=== PATIENT | male | born 1950 | race African-American/Black ===

== ENCOUNTER 2021-07-12 12:05 | Inpatient (IN) ==
[2021-07-12] MEDS ORDERED: SODIUM CHLORIDE 0.9% 1,000 ML IV STA (13:12)
[2021-07-12 13:15] LABS: Basophils % 0.2 % (0.0-0.8); Eosinophils % 0.2 % (0.00-10.9); Hematocrit 36.3 VOL% (42.0-52.0); Hemoglobin 12.1 GM/DL (14.0-18.0); Immature Granulocytes % 2.7 %; Immature Granulocytes Absolute 0.49 #; Lymphocytes # 1.2 10*3/uL (1.4-4.0); Lymphocytes % 6.5 % (21.2-54.2); Mean Corpuscular HGB Conc 33.3 GM/DL (32-36); Mean Corpuscular Volume 87.5 FL (87-102); Mean Platelet Volume 10.6 FL (9.6-12.0); Monocytes % 11.1 % (1.7-12.7); Neutrophils % 79.3 % (38.7-73.9); Platelet Count 459 T/CUMM (130-400); Red Blood Count 4.15 MC/CUMM (3.8-5.5); Red Cell Distribution Width 14.6 % (9.3-17.3); White Blood Count 18.1 T/CUMM (4-12)
[2021-07-12 13:23] LABS: Bilirubin,Urine Small mg/dL (Negative); Glucose,Urine (UA) Negative (Negative); Ketones,Urine Negative (Negative); Nitrite,Urine Negative (Negative); Protein,Urine Trace mg/dL (Negative); Urine Appearance Clear (Clear); Urine Color Orange (Yellow); Urine Specific Gravity 1.025 (1.001-1.035)
[2021-07-12 13:24] LABS: Blood, Urine Trace mg/dL (Negative); Urine Urobilinogen > 8.0 eU/dL (<2.0)
[2021-07-12 13:28] LABS: Hyaline Casts,Urine 173 /LPF (0-3); Mucus,Urine Moderate /LPF (Occasional); RBC,Urine 2 /HPF (0-4); Squamous Epithelial Cell,Urine Occasional /HPF (0-10)
[2021-07-12 13:35] LABS: Albumin 1.8 G/DL (3.4-5.0); Bilirubin,Total 1.6 MG/DL (0.20-1.00); Calcium 8.9 MG/DL (8.5-10.1); Osmolality,Calculated 264.8 MOS/KG (273-304); Potassium 4.4 MMOL/L (3.5-5.1); Total Protein 8.1 G/DL (6.4-8.2)
[2021-07-12] MEDS ORDERED: KETOROLAC 30 MG/1 ML VIAL IV STA (15:23)
[2021-07-12] MEDS ORDERED: VANCOMYCIN INJ 1,000 MG in SODIUM CHLORIDE 0.9% 250 ML IV STA (15:32)
[2021-07-12] MEDS ORDERED: GLUCAGON 1 MG VIAL IM PRN (15:37)
[2021-07-12] MEDS ORDERED: ONDANSETRON 4 MG/2 ML VIAL IV PRN (15:37)
[2021-07-12] MEDS ORDERED: DEXTROSE 10% 250 ML BAG IV PRN (15:43)
[2021-07-12] MEDS: cefTRIAXone 2,000 MG in SODIUM CHLORIDE 0.9% 100 ML IV SCH (17:12)
[2021-07-12] MEDS: ENOXAPARIN 40 MG/0.4 ML SYRINGE SUBCUT SCH (17:12)
[2021-07-12] MEDS: KETOROLAC 30 MG/1 ML VIAL IV SCH (17:20)
[2021-07-12] MEDS: LACTATED RINGERS 1,000 ML IV SCH (17:51)
[2021-07-13] MEDS: KETOROLAC 30 MG/1 ML VIAL IV SCH ×3 (00:41→15:50)
[2021-07-13] MEDS: VANCOMYCIN INJ 1,000 MG in SODIUM CHLORIDE 0.9% 250 ML IV SCH ×2 (04:37→16:32)
[2021-07-13 05:04] LABS: Basophils % 0.2 % (0.0-0.8); Eosinophils # 0.1 10*3/uL (0.0-0.87); Eosinophils % 0.3 % (0.00-10.9); Hematocrit 32.3 VOL% (42.0-52.0); Hemoglobin 10.8 GM/DL (14.0-18.0); Immature Granulocytes % 2.5 %; Immature Granulocytes Absolute 0.36 #; Lymphocytes # 1.4 10*3/uL (1.4-4.0); Lymphocytes % 9.4 % (21.2-54.2); Mean Corpuscular HGB Conc 33.4 GM/DL (32-36); Mean Corpuscular Volume 87.1 FL (87-102); Mean Platelet Volume 9.9 FL (9.6-12.0); Monocytes % 13.3 % (1.7-12.7); Neutrophils % 74.3 % (38.7-73.9); Platelet Count 516 T/CUMM (130-400); Red Blood Count 3.71 MC/CUMM (3.8-5.5); Red Cell Distribution Width 14.6 % (9.3-17.3); White Blood Count 14.5 T/CUMM (4-12)
[2021-07-13 05:25] LABS: Calcium 8.3 MG/DL (8.5-10.1); Osmolality,Calculated 277.8 MOS/KG (273-304); Potassium 4.1 MMOL/L (3.5-5.1)
[2021-07-13 05:36] LABS: Total Protein 6.9 G/DL (6.4-8.2)
[2021-07-13 05:45] LABS: Eosinophils 1 % (0-10); Hypochromia 1+; Lymphocytes 6 % (20-55); Segmented Neutrophils 83 % (50-85); Total Cells Counted 100
[2021-07-13 05:46] LABS: Microcytosis Slight; Platelet Estimate Increased; Target Cells Slight
[2021-07-13 05:57] LABS: HIV Antigen/Antibody Result Nonreactive (Nonreactive)
[2021-07-13] MEDS: PANTOPRAZOLE 40 MG TABLET PO SCH (09:05)
[2021-07-13] MEDS: amLODIPine 10 MG TABLET PO SCH (09:05)
[2021-07-13] MEDS: cefTRIAXone 2,000 MG in SODIUM CHLORIDE 0.9% 100 ML IV SCH (15:47)
[2021-07-13] MEDS: ENOXAPARIN 40 MG/0.4 ML SYRINGE SUBCUT SCH (15:50)
[2021-07-13] MEDS: LACTATED RINGERS 1,000 ML IV SCH (22:03)
[2021-07-14] MEDS: KETOROLAC 30 MG/1 ML VIAL IV SCH ×2 (00:23→08:49)
[2021-07-14] MEDS: VANCOMYCIN INJ 1,250 MG in SODIUM CHLORIDE 0.9% 250 ML IV SCH ×2 (04:31→17:30)
[2021-07-14 07:00] LABS: Immunoglobulin A (Chem) 163 MG/DL (70-400); Immunoglobulin G (Chem) 1690 MG/DL (700-1600); Total Protein (Chem) 6.9 G/DL (6.4-8.3)
[2021-07-14 07:01] LABS: Immunoglobulin M (Chem) 38 MG/DL (40-230)
[2021-07-14 07:09] LABS: Basophils # 0.1 10*3/uL (0.0-0.2); Basophils % 0.5 % (0.0-0.8); Eosinophils # 0.1 10*3/uL (0.0-0.87); Eosinophils % 1.2 % (0.00-10.9); Hematocrit 36.4 VOL% (42.0-52.0); Immature Granulocytes % 4.3 %; Immature Granulocytes Absolute 0.52 #; Lymphocytes # 1.7 10*3/uL (1.4-4.0); Lymphocytes % 13.8 % (21.2-54.2); Mean Corpuscular Volume 88.6 FL (87-102); Mean Platelet Volume 10.4 FL (9.6-12.0); Monocytes % 13.3 % (1.7-12.7); Neutrophils % 66.9 % (38.7-73.9); Platelet Count 603 T/CUMM (130-400); Red Blood Count 4.11 MC/CUMM (3.8-5.5); Red Cell Distribution Width 14.9 % (9.3-17.3); White Blood Count 12.1 T/CUMM (4-12)
[2021-07-14 07:37] LABS: Calcium 8.7 MG/DL (8.5-10.1); Potassium 4.6 MMOL/L (3.5-5.1)
[2021-07-14 07:48] LABS: Anisocytosis 1+; Band Neutrophils 2 % (0-10); Lymphocytes 13 % (20-55); Macrocytosis Slight; Platelet Estimate Increased; Segmented Neutrophils 70 % (50-85); Smudge Cells Few; Target Cells Few; Total Cells Counted 100
[2021-07-14] MEDS: CHOLECALCIFEROL 1,000 UNIT TABLET PO SCH (08:49)
[2021-07-14] MEDS: amLODIPine 10 MG TABLET PO SCH (08:49)
[2021-07-14] MEDS: PANTOPRAZOLE 40 MG TABLET PO SCH (08:49)
[2021-07-14 09:28] LABS: Albumin (SPE) 2.4 G/DL (3.2-5.3); Albumin (SPE) Rel % 35.3 %; Alpha 1 (SPE) 0.5 G/DL (0.1-0.4); Alpha 1 (SPE) Rel % 7.6 %; Alpha 2 (SPE) 1.2 G/DL (0.4-1.0); Alpha 2 (SPE) Rel % 17.5 %; Beta (SPE) Rel % 14.1 %; Gamma (SPE) Rel % 25.5 %
[2021-07-14 09:35] LABS: Gamma (SPE) 1.8 G/DL (0.7-1.7)
[2021-07-14] MEDS: cefTRIAXone 2,000 MG in SODIUM CHLORIDE 0.9% 100 ML IV SCH (15:55)
[2021-07-14] MEDS: ENOXAPARIN 40 MG/0.4 ML SYRINGE SUBCUT SCH (20:58)
[2021-07-15] MEDS: LACTATED RINGERS 1,000 ML IV SCH ×3 (00:47→00:48)
[2021-07-15] MEDS: VANCOMYCIN INJ 1,250 MG in SODIUM CHLORIDE 0.9% 250 ML IV SCH ×2 (04:12→16:39)
[2021-07-15 05:49] LABS: Basophils % 0.3 % (0.0-0.8); Eosinophils # 0.1 10*3/uL (0.0-0.87); Hematocrit 34.6 VOL% (42.0-52.0); Hemoglobin 11.1 GM/DL (14.0-18.0); Immature Granulocytes % 2.5 %; Immature Granulocytes Absolute 0.27 #; Lymphocytes # 1.4 10*3/uL (1.4-4.0); Lymphocytes % 12.9 % (21.2-54.2); Mean Corpuscular HGB Conc 32.1 GM/DL (32-36); Mean Corpuscular Volume 89.4 FL (87-102); Mean Platelet Volume 9.8 FL (9.6-12.0); Monocytes % 12.7 % (1.7-12.7); Neutrophils % 70.6 % (38.7-73.9); Platelet Count 665 T/CUMM (130-400); Red Blood Count 3.87 MC/CUMM (3.8-5.5); Red Cell Distribution Width 14.6 % (9.3-17.3); White Blood Count 10.7 T/CUMM (4-12)
[2021-07-15 06:17] LABS: Calcium 8.8 MG/DL (8.5-10.1); Osmolality,Calculated 265.4 MOS/KG (273-304); Potassium 4.8 MMOL/L (3.5-5.1)
[2021-07-15] MEDS: amLODIPine 10 MG TABLET PO SCH (08:32)
[2021-07-15] MEDS: PANTOPRAZOLE 40 MG TABLET PO SCH (08:32)
[2021-07-15] MEDS: cefTRIAXone 2,000 MG in SODIUM CHLORIDE 0.9% 100 ML IV SCH (08:32)
[2021-07-15] MEDS: CHOLECALCIFEROL 1,000 UNIT TABLET PO SCH (08:33)
[2021-07-15] MEDS: GABAPENTIN 400 MG CAPSULE PO SCH ×3 (08:34→20:55)
[2021-07-15 11:40] LABS: Kappa Free Light Chain 2.49 mg/dL; Lambda Free Light Chain 3.14 mg/dL
[2021-07-15 11:57] LABS: Total Protein 24 Hr Ur Result 455 MG/24HR (0-149.1); Total Volume,Urine 3500 ML (400-2000)
[2021-07-15] MEDS: ENOXAPARIN 40 MG/0.4 ML SYRINGE SUBCUT SCH (20:55)
[2021-07-16] MEDS: LACTATED RINGERS 1,000 ML IV SCH ×2 (02:32→02:53)
[2021-07-16] MEDS: VANCOMYCIN INJ 1,250 MG in SODIUM CHLORIDE 0.9% 250 ML IV SCH ×2 (03:05→16:51)
[2021-07-16 05:20] LABS: Basophils # 0.1 10*3/uL (0.0-0.2); Basophils % 0.6 % (0.0-0.8); Eosinophils # 0.1 10*3/uL (0.0-0.87); Eosinophils % 1.5 % (0.00-10.9); Hemoglobin 11.9 GM/DL (14.0-18.0); Immature Granulocytes % 3.8 %; Immature Granulocytes Absolute 0.36 #; Lymphocytes # 1.3 10*3/uL (1.4-4.0); Lymphocytes % 13.3 % (21.2-54.2); Mean Corpuscular HGB Conc 32.2 GM/DL (32-36); Mean Platelet Volume 10.5 FL (9.6-12.0); Monocytes % 14.6 % (1.7-12.7); Neutrophils % 66.2 % (38.7-73.9); Platelet Count 536 T/CUMM (130-400); Red Blood Count 4.11 MC/CUMM (3.8-5.5); Red Cell Distribution Width 14.7 % (9.3-17.3); White Blood Count 9.6 T/CUMM (4-12)
[2021-07-16 05:42] LABS: Eosinophils 1 % (0-10); Hypochromia Slight; Lymphocytes 10 % (20-55); Microcytosis Slight; Platelet Estimate Adequate; Segmented Neutrophils 69 % (50-85); Total Cells Counted 100
[2021-07-16 05:56] LABS: Calcium 8.9 MG/DL (8.5-10.1); Osmolality,Calculated 262.5 MOS/KG (273-304); Potassium 5.1 MMOL/L (3.5-5.1)
[2021-07-16] MEDS: CHOLECALCIFEROL 1,000 UNIT TABLET PO SCH (08:33)
[2021-07-16] MEDS: GABAPENTIN 400 MG CAPSULE PO SCH ×4 (08:33→19:55)
[2021-07-16] MEDS: amLODIPine 10 MG TABLET PO SCH (08:33)
[2021-07-16] MEDS: cefTRIAXone 2,000 MG in SODIUM CHLORIDE 0.9% 100 ML IV SCH (08:34)
[2021-07-16] MEDS: PANTOPRAZOLE 40 MG TABLET PO SCH (08:34)
[2021-07-16 08:59] LABS: 24 Hr Protein (Bench) 455 MG/24HR (0-149.1)
[2021-07-16] MEDS: ENOXAPARIN 40 MG/0.4 ML SYRINGE SUBCUT SCH ×2 (19:55)
[2021-07-17] MEDS: VANCOMYCIN INJ 1,250 MG in SODIUM CHLORIDE 0.9% 250 ML IV SCH ×2 (04:28→15:32)
[2021-07-17 05:47] LABS: Basophils % 0.2 % (0.0-0.8); Eosinophils # 0.1 10*3/uL (0.0-0.87); Eosinophils % 1.6 % (0.00-10.9); Hematocrit 36.2 VOL% (42.0-52.0); Hemoglobin 11.6 GM/DL (14.0-18.0); Immature Granulocytes % 1.9 %; Immature Granulocytes Absolute 0.16 #; Lymphocytes % 12.2 % (21.2-54.2); Mean Corpuscular Volume 90.5 FL (87-102); Mean Platelet Volume 9.3 FL (9.6-12.0); Monocytes % 13.8 % (1.7-12.7); Neutrophils % 70.3 % (38.7-73.9); Platelet Count 626 T/CUMM (130-400); Red Cell Distribution Width 14.4 % (9.3-17.3); White Blood Count 8.3 T/CUMM (4-12)
[2021-07-17 06:13] LABS: Calcium 8.7 MG/DL (8.5-10.1); Potassium 4.1 MMOL/L (3.5-5.1)
[2021-07-17] MEDS: CHOLECALCIFEROL 1,000 UNIT TABLET PO SCH (09:13)
[2021-07-17] MEDS: PANTOPRAZOLE 40 MG TABLET PO SCH (09:13)
[2021-07-17] MEDS: amLODIPine 10 MG TABLET PO SCH (09:13)
[2021-07-17] MEDS: GABAPENTIN 400 MG CAPSULE PO SCH ×3 (09:13→21:15)
[2021-07-17] MEDS: cefTRIAXone 2,000 MG in SODIUM CHLORIDE 0.9% 100 ML IV SCH (09:13)
[2021-07-17 18:04] LABS: Cholesterol Crystals None Seen /LPF
[2021-07-17 18:10] LABS: Lymphocytes,Synovial Fluid 1 %; Neutrophils,Synovial Fluid 98 %
[2021-07-18] MEDS: VANCOMYCIN INJ 1,250 MG in SODIUM CHLORIDE 0.9% 250 ML IV SCH (04:25)
[2021-07-18 06:31] LABS: Basophils % 0.4 % (0.0-0.8); Eosinophils # 0.1 10*3/uL (0.0-0.87); Eosinophils % 1.2 % (0.00-10.9); Hematocrit 33.5 VOL% (42.0-52.0); Immature Granulocytes % 1.1 %; Immature Granulocytes Absolute 0.08 #; Lymphocytes # 0.9 10*3/uL (1.4-4.0); Lymphocytes % 11.7 % (21.2-54.2); Mean Corpuscular HGB Conc 32.8 GM/DL (32-36); Mean Corpuscular Volume 88.9 FL (87-102); Mean Platelet Volume 8.7 FL (9.6-12.0); Monocytes % 14.8 % (1.7-12.7); Neutrophils % 70.8 % (38.7-73.9); Platelet Count 520 T/CUMM (130-400); Red Blood Count 3.77 MC/CUMM (3.8-5.5); Red Cell Distribution Width 14.2 % (9.3-17.3); White Blood Count 7.3 T/CUMM (4-12)
[2021-07-18 06:49] LABS: Calcium 8.2 MG/DL (8.5-10.1); Osmolality,Calculated 271.8 MOS/KG (273-304)
[2021-07-18 06:57] LABS: Eosinophils 1 % (0-10); Hypochromia Slight; Lymphocytes 9 % (20-55); Microcytosis Slight; Platelet Estimate Adequate; Segmented Neutrophils 74 % (50-85); Total Cells Counted 100
[2021-07-18] MEDS ORDERED: MAGNESIUM HYDROXIDE SUSP 30 ML UDCUP PO ONE (07:25)
[2021-07-18] MEDS: DOCUSATE SODIUM 100 MG CAPSULE PO SCH ×2 (09:03→20:16)
[2021-07-18] MEDS: amLODIPine 10 MG TABLET PO SCH (09:03)
[2021-07-18] MEDS: CHOLECALCIFEROL 1,000 UNIT TABLET PO SCH (09:03)
[2021-07-18] MEDS: PANTOPRAZOLE 40 MG TABLET PO SCH (09:03)
[2021-07-18] MEDS: GABAPENTIN 400 MG CAPSULE PO SCH ×3 (09:03→20:16)
[2021-07-18] MEDS: cefTRIAXone 2,000 MG in SODIUM CHLORIDE 0.9% 100 ML IV SCH (09:04)
[2021-07-18] MEDS: ENOXAPARIN 40 MG/0.4 ML SYRINGE SUBCUT SCH (20:18)
[2021-07-19 05:30] LABS: Basophils % 0.3 % (0.0-0.8); Eosinophils # 0.1 10*3/uL (0.0-0.87); Eosinophils % 1.4 % (0.00-10.9); Hematocrit 34.7 VOL% (42.0-52.0); Hemoglobin 11.2 GM/DL (14.0-18.0); Immature Granulocytes % 0.9 %; Immature Granulocytes Absolute 0.06 #; Lymphocytes # 0.9 10*3/uL (1.4-4.0); Lymphocytes % 14.4 % (21.2-54.2); Mean Corpuscular HGB Conc 32.3 GM/DL (32-36); Mean Corpuscular Volume 89.9 FL (87-102); Mean Platelet Volume 9.1 FL (9.6-12.0); Monocytes % 15.6 % (1.7-12.7); Neutrophils % 67.4 % (38.7-73.9); Platelet Count 502 T/CUMM (130-400); Red Blood Count 3.86 MC/CUMM (3.8-5.5); Red Cell Distribution Width 14.1 % (9.3-17.3); White Blood Count 6.5 T/CUMM (4-12)
[2021-07-19 05:59] LABS: Calcium 8.2 MG/DL (8.5-10.1); Osmolality,Calculated 267.1 MOS/KG (273-304)
[2021-07-19 06:10] LABS: Eosinophils 3 % (0-10); Lymphocytes 21 % (20-55); Platelet Estimate Increased; Segmented Neutrophils 63 % (50-85); Total Cells Counted 100
[2021-07-19] MEDS: POLYETHYLENE GLYCOL POWDER 17 GM PACK PO SCH (10:06)
[2021-07-19] MEDS: GABAPENTIN 400 MG CAPSULE PO SCH ×3 (10:06→21:11)
[2021-07-19] MEDS: DOCUSATE SODIUM 100 MG CAPSULE PO SCH ×2 (10:06→21:11)
[2021-07-19] MEDS: amLODIPine 10 MG TABLET PO SCH (10:07)
[2021-07-19] MEDS: PANTOPRAZOLE 40 MG TABLET PO SCH (10:07)
[2021-07-19] MEDS: CHOLECALCIFEROL 1,000 UNIT TABLET PO SCH (10:08)
[2021-07-19] MEDS ORDERED: LACTULOSE 20 GM/30 ML UDCUP PO ONE (12:41)
[2021-07-19 19:56] LABS: Fr Urinary Kappa Excretion/24h 73.64 mg/d; Fr Urinary Lambda Excret/24h 12.39 mg/d; Fr Urinary Lambda Light Chain 3.54 mg/L (0.00-3.79); Free Urinary Kappa Light Chain 21.04 mg/L (0.00-32.90); IF FLC Collection Duration 24 hr; IF FLC Collection Volume 3500 mL
[2021-07-19] MEDS: ENOXAPARIN 40 MG/0.4 ML SYRINGE SUBCUT SCH (21:12)
[2021-07-20] MEDS: GABAPENTIN 400 MG CAPSULE PO SCH ×3 (09:47→21:18)
[2021-07-20] MEDS: POLYETHYLENE GLYCOL POWDER 17 GM PACK PO SCH (09:47)
[2021-07-20] MEDS: DOCUSATE SODIUM 100 MG CAPSULE PO SCH ×2 (09:47→21:18)
[2021-07-20] MEDS: PANTOPRAZOLE 40 MG TABLET PO SCH (09:48)
[2021-07-20] MEDS: amLODIPine 10 MG TABLET PO SCH (09:48)
[2021-07-20] MEDS: CHOLECALCIFEROL 1,000 UNIT TABLET PO SCH (09:48)
[2021-07-20] MEDS: ENOXAPARIN 40 MG/0.4 ML SYRINGE SUBCUT SCH (21:21)
[2021-07-21] MEDS: amLODIPine 10 MG TABLET PO SCH (09:10)
[2021-07-21] MEDS: PANTOPRAZOLE 40 MG TABLET PO SCH (09:10)
[2021-07-21] MEDS: POLYETHYLENE GLYCOL POWDER 17 GM PACK PO SCH (09:10)
[2021-07-21] MEDS: CHOLECALCIFEROL 1,000 UNIT TABLET PO SCH (09:10)
[2021-07-21] MEDS: DOCUSATE SODIUM 100 MG CAPSULE PO SCH (09:10)
[2021-07-21] MEDS: GABAPENTIN 400 MG CAPSULE PO SCH (09:11)
[2021-07-21 12:31] VITALS: BP 137/76
== END 2021-07-21 14:00 | disposition swing bed (61) | DRG 554 ==
LOC: SUATTDRO → N.ED 12:05 → N.5E 15:37 → SUATTDRO 15:37 → N.5E 19:39
PROVIDERS: ADMIT Hospitalist; ATTEND Internal Medicine